=== PATIENT | female | born 1955 | race Caucasian/White ===

== ENCOUNTER → 2022-05-21 | Outpatient (CLI) | payer OTHER ==
[~2022-05-21] MED LIST: BUPR150T12 PO; CALC1TAB86 PO; CETI-24 PO; LOSA50TA28 PO; MELO15TA28 PO; SIMV20TA22 PO
== END ==
LOC: M LABSMTC 10:09
PROVIDERS: ATTEND Anesthesiology
DX: Z01.812 Encounter for preprocedural laboratory examination (principal); Z11.52 Encounter for screening for COVID-19

== ENCOUNTER 2022-05-23 07:21 | Day surgery (SDC) | payer OTHER ==
[~2022-05-23] VITALS: Ht 149.9 cm; Wt 71.2 kg
[~2022-05-23 07:21] MED LIST changes: +ceFAZolin SOD 2 GM in IV 1 EA IV ONE
[2022-05-23] MEDS ORDERED: LR 1,000 ML IV SCH ×2 (07:45→11:40)
[2022-05-23] MEDS ORDERED: propofoL 200 MG/20 ML VIAL As Ordered ONE (09:13)
[2022-05-23] MEDS ORDERED: LIDOCAINE 2% 100MG/5ML SDV (FOR ANES.) As Ordered ONE (09:13)
[2022-05-23] MEDS ORDERED: ONDANSETRON 4MG 2ML VIAL As Ordered ONE ×2 (09:13→11:33)
[2022-05-23] MEDS ORDERED: LIDOCAINE 1% SDV 30ML VIAL As Ordered ONE (09:47)
[2022-05-23] MEDS ORDERED: BUPIVACAINE HCL 0.5% 30ML VIAL As Ordered ONE (09:47)
[2022-05-23] MEDS ORDERED: fentaNYL 100 MCG/2 ML INJECTION As Ordered ONE ×2 (09:48→11:41)
[2022-05-23] MEDS ORDERED: MIDAZOLAM INJ 2MG/2ML VIAL As Ordered ONE (09:48)
[2022-05-23] MEDS ORDERED: ACETAMINOPHEN 1000MG 100ML IV BAG As Ordered ONE (10:10)
[2022-05-23] MEDS ORDERED: ePHEDrine SULFATE 25 MG/5 ML(5MG/ML) SYRINGE As Ordered ONE (10:35)
[2022-05-23] MEDS ORDERED: KETOROLAC 60MG 2ML VIAL As Ordered ONE (11:13)
[2022-05-23] MEDS ORDERED: oxyCODONE 5MG TAB PO PRN (11:40)
[2022-05-23] MEDS ORDERED: MORPHINE 2 MG/ML 1ML VIAL IV PRN (11:40)
[2022-05-23] MEDS ORDERED: ONDANSETRON 4MG 2ML VIAL IV PRN (11:40)
[2022-05-23] MEDS: fentaNYL 100 MCG/2 ML INJECTION IV PRN ×4 (11:42→12:00)
[2022-05-23 12:25] VITALS: BP 130/75
== END 2022-05-23 12:58 | disposition home or self-care (01) ==
LOC: M SDC 07:21
PROVIDERS: ATTEND Podiatrist Foot & Ankle Surgery
DX: M21.612 Bunion of left foot (principal); M20.12 Hallux valgus (acquired), left foot; I10 Essential (primary) hypertension; J45.909 Unspecified asthma, uncomplicated; M19.90 Unspecified osteoarthritis, unspecified site; E04.1 Nontoxic single thyroid nodule; E78.5 Hyperlipidemia, unspecified; Z88.5 Allergy status to narcotic agent; Z88.8 Allergy status to other drugs, medicaments and biological substances; F41.9 Anxiety disorder, unspecified; F32.A Depression, unspecified; Z79.899 Other long term (current) drug therapy; Z87.891 Personal history of nicotine dependence
CPT/HCPCS: 28299; 76000; 88300; 97116; C1713; J1100; J2405